=== PATIENT | male | born 1985 | race African-American/Black ===

== ENCOUNTER 2017-08-23 21:26 | Emergency (ER) | payer SELFPAY ==
[~2017-08-23] VITALS: Ht 190.5 cm; Wt 106.8 kg
[2017-08-23] MEDS ORDERED: IBUPROFEN 600 MG TABLET PO ONE (23:15)
[2017-08-23 23:43] VITALS: BP 132/80
== END 2017-08-23 23:44 | disposition home or self-care (01) ==
LOC: EMS 21:27
DX: S83.92XA Sprain of unspecified site of left knee, initial encounter (principal); X50.9XXA Other and unspecified overexertion or strenuous movements or postures, initial encounter; Y93.67 Activity, basketball; Y92.89 Other specified places as the place of occurrence of the external cause; Y99.8 Other external cause status
CPT/HCPCS: 29505; 29530; 99284